=== PATIENT | male | born 1950 | race Caucasian/White ===

== ENCOUNTER 2019-09-20 09:47 | Outpatient (CLI) | payer MEDICARE ==
[~2019-09-20 09:47] MED LIST: AMLO5TAB4 PO; LANTUS SQ; METFORMIN PO; SITA100T PO
== END 2019-09-20 23:59 | disposition home or self-care (01) ==
LOC: CFH 09:47
PROVIDERS: ATTEND Surgery Surgery of the Hand
DX: S62.024A Nondisplaced fracture of middle third of navicular [scaphoid] bone of right wrist, initial encounter for closed fracture (principal); M85.88 Other specified disorders of bone density and structure, other site; M19.031 Primary osteoarthritis, right wrist; X58.XXXA Exposure to other specified factors, initial encounter; Y93.89 Activity, other specified; Y92.89 Other specified places as the place of occurrence of the external cause; Y99.8 Other external cause status